=== PATIENT | male | born 1955 | race Two or more races ===

== ENCOUNTER 2020-10-02 00:35 | Emergency (ER) | payer BC ==
[2020-10-02] MEDS ORDERED: chlorproMAZINE HCL 25 MG/1 ML AMP IM ONE (00:47)
[2020-10-02 01:19] VITALS: BP 124/86; PULSE 74; TEMP 98; BMI 27.3
[2020-10-02 02:17] LABS: BASO % 0.2 % (0-2.0); EOS % 0.5 % (0-4.5); HEMATOCRIT 41.2 % (35.4-49); HEMOGLOBIN 13.6 GM/dL (11.7-16.9); LYMPH % 21.1 % (8-40); MCH 27.2 pg (25.7-33.7); MEAN CELL VOLUME 82.6 fl (80-96); MEAN PLT VOLUME 7.9 fl (7.5-11.1); MONO % 10.7 % (3.8-10.2); NEUT % 67.5 % (42.8-82.8); PLATELET COUNT 361 10^3/uL (134-434); RBC 4.99 M/mm3 (4.00-5.60); RDW 14.1 % (11.9-15.9); WHITE BLOOD COUNT 9.3 K/mm3 (4.0-10.0)
[2020-10-02 02:39] LABS: BLOOD UREA NITROGEN 19.6 mg/dL (7-18); CALCIUM 9.3 mg/dL (8.5-10.1)
[2020-10-02 02:40] LABS: ALBUMIN 4.1 g/dl (3.4-5.0)
[2020-10-02 02:44] LABS: BILIRUBIN,TOTAL 0.4 mg/dL (0.2-1)
== END 2020-10-02 02:56 | disposition home or self-care (01) ==
LOC: FER 00:35
PROC: 3E023NZ Introduction of Analgesics, Hypnotics, Sedatives into Muscle, Percutaneous Approach (ICD-10-PCS; principal; 2020-10-02)
DX: R06.6 Hiccough (principal)
CPT/HCPCS: 36415; 80053; 84484; 85025; 93005; 99284-25